=== PATIENT | female | born 1965 | race Caucasian/White ===

== ENCOUNTER 2024-07-05 17:30 | Emergency (ER) | payer OTHER ==
[~2024-07-05] VITALS: Ht 157.5 cm; Wt 69.4 kg
[2024-07-05] MEDS ORDERED: IBUP-1490 PO (19:40)
[2024-07-05 19:50] VITALS: BP 111/73; TEMP 98.9; O2SAT 99
== END 2024-07-05 19:51 | disposition home or self-care (01) ==
LOC: ER 17:30
DX: M20.011 Mallet finger of right finger(s) (principal); M25.561 Pain in right knee; W18.39XA Other fall on same level, initial encounter; Y93.89 Activity, other specified; Y92.89 Other specified places as the place of occurrence of the external cause; Y99.8 Other external cause status
CPT/HCPCS: 73140-TC; 73564-TC